=== PATIENT | male | born 1980 | race Caucasian/White ===

== ENCOUNTER 2024-05-23 11:29 | Emergency (ER) | payer BC ==
[2024-05-23 13:08] VITALS: RESP 18
[2024-05-23 13:15] LABS: Basophils # (A) 0.1 k/uL (0-0.2); Basophils % (A) 1 %; Eosinophils # (A) 0.4 k/uL (0-0.7); Eosinophils % (A) 6 %; HCT 45.1 % (39.0-53.0); HGB 15.4 gm/dL (13.0-17.5); Lymphocytes # (A) 1.9 k/uL (1.0-4.8); Lymphocytes % (A) 28 %; MCH 32.1 pg (25.0-35.0); MCHC 34.1 g/dL (31.0-37.0); MCV 94.1 fL (80.0-100.0); Mean Platelet Volume 7.5; Monocytes # (A) 0.3 k/uL (0-1.0); Monocytes % (A) 5 %; Neutrophils # (A) 3.9 k/uL (1.3-7.7); Neutrophils % (A) 57 %; Platelet Count 207 k/uL (150-450); RDW 12.6 % (11.5-15.5); WBC 6.9 k/uL (3.8-10.6)
[2024-05-23 13:26] LABS: ALT 18 U/L (4-49); African American GFR (CKD) >90 (>60 ml/min/1.73 sqM); Albumin 4.5 g/dL (3.5-5.0); Anion Gap 9 mmol/L; Blood Urea Nitrogen 10 mg/dL (9-20); Calcium 9.8 mg/dL (8.4-10.2); Carbon Dioxide 24 mmol/L (22-30); Chloride 106 mmol/L (98-107); Glucose 91 mg/dL (74-99); Non-African American GFR(CKD) >90 (>60 ml/min/1.73 sqM); Sodium 139 mmol/L (137-145); Total Protein 7.1 g/dL (6.3-8.2)
--- NOTE | 2024-05-23 13:33 | ED ---
SOB HPI - General Chief Complaint: Shortness of Breath Stated Complaint: VIVIANA Time Seen by Provider: 05/23/24 12:24 Source: patient, RN notes reviewed Mode of arrival: ambulatory Limitations: no limitations - History of Present Illness Initial Comments: This is a 44-year-old male who presents to the emergency department for coughing and wheezing. States that over the last several months he noticed that at night he seemed to be wheezing and had some difficulty breathing. This then started to become more prominent and he started to notice it during the day. He had been to different urgent cares several times and was on courses of steroids and antibiotics. States that symptoms seem to get better and then return shortly afterwards. He then followed up with an ENT who did a culture of his throat. They initially thought it was a yeast infection and he was started on fluconazole. However, the culture came back positive for bacteria and he was on another course of antibiotics. Symptoms again improved temporarily before returning. He is concerned about a blood clot in his lungs or something else contributing to his symptoms. Denies any history of asthma. MD Complaint: shortness of breath, cough - Related Data Previous Rx's Medication Instructions Recorded Budesonide/Formoterol Fumarate 2 puff INHALATION BID #10.2 gm 05/23/24 [Symbicort 80-4.5 Mcg Inhaler] predniSONE 50 mg PO DAILY 5 Days #5 tab 05/23/24 Allergies Allergy/AdvReac Type Severity Reaction Status Date / Time No Known Allergies Allergy Verified 05/23/24 12:23 Review of Systems ROS Statement: Those systems with pertinent positive or pertinent negative responses have been documented in the HPI. ROS Other: All systems not noted in ROS Statement are negative. Past Medical History Past Medical History: No Reported History History of Any Multi-Drug Resistant Organisms: None Reported Past Surgical History: Cholecystectomy Past Psychological History: No Psychological Hx Reported Smoking Status: Never smoker Past Alcohol Use History: Occasional Past Drug Use History: Marijuana General Exam Limitations: no limitations General appearance: alert, in no apparent distress Head exam: Present: atraumatic, normocephalic, normal inspection Respiratory exam: Present: normal lung sounds bilaterally. Absent: respiratory distress, wheezes, rales, rhonchi, stridor Cardiovascular Exam: Present: regular rate, normal rhythm, normal heart sounds. Absent: systolic murmur, diastolic murmur, rubs, gallop, clicks Neurological exam: Present: alert, oriented X3, CN II-XII intact Psychiatric exam: Present: normal affect, normal mood Skin exam: Present: warm, dry, intact, normal color. Absent: rash Course Vital Signs 05/23/24 05/23/24 05/23/24 12:18 13:07 14:23 Temperature 98.2 F 98.1 F Pulse Rate 73 59 L Respiratory 15 18 18 Rate Blood Pressure 158/101 166/112 O2 Sat by Pulse 98 99 Oximetry 05/23/24 05/23/24 14:55 15:29 Temperature 98.1 F Pulse Rate 86 68 Respiratory 18 18 Rate Blood Pressure 159/94 O2 Sat by Pulse 97 97 Oximetry Medical Decision Making - Medical Decision Making This is a 44 year old male who presents to the emergency department for shortness of breath. Was pt. sent in by a medical professional or institution? @ -No Did you speak to anyone other than the patient for history? @ -No Did you review nursing and triage notes? @ -Yes, and I agree, it is accurate with regards to the patient's symptoms. Were old charts reviewed? @ -No Differential Diagnosis? @ -Differential Dyspnea: Coronary syndrome, arrhythmia, tamponade, asthma, COPD, pulmonary embolism, pneumonia, pneumothorax, pulmonary effusion, anaphylaxis, diabetic ketoacidosis, flailed chest, pulmonary contusion, diaphragmatic rupture, anemia, neuromuscular, this is not meant to be an all-inclusive list. EKG interpreted by me (3pts min.)? @ -EKG interpreted by me demonstrating the following: Sinus bradycardia. Ventricular rate 54 bpm, W[place] interval 147 ms, QRS duration 99 ms, QTc 378 ms. X-rays interpreted by me (1pt min.)? @ -Chest x-ray obtained, my interpretation identifies no localized consolidations or infiltrates. CT interpreted by me (1pt min.)? @ -CTA of the chest obtained. My interpretation identifies no evidence of a pulmonary embolus. U/S interpreted by me (1pt. min.)? @ -Not obtained What testing was considered but not performed? (CT, X-rays, U/S, labs)? Why? @ -None What meds were considered but not given? Why? @ -None Did you discuss the management of the patient with other professionals? @ -No Did you reconcile home meds? @ -No Was smoking cessation discussed for >3mins.? @ -No Was critical care preformed (if so, how long)? @ -No Were there social determinants of health that impacted care today? How? (Homelessness, low income, unemployed, alcoholism, drug addiction, transportation, low edu. Level, literacy, decrease access to med. care, intermediate, rehab)? @ -No Was there de-escalation of care discussed even if they declined? (Discuss DNR or withdrawal of care, Hospice)? @ -No What co-morbidities impacted this encounter? (DM, HTN, Smoking, COPD, CAD, Cancer, CVA, Hep., AIDS, mental health diagnosis, sleep apnea, morbid obesity)? @ -None Was patient admitted / discharged? @ -Discharged. Lab work demonstrates a borderline elevated D-dimer of 0.54. Chest x-ray reveals no acute process. CTA of the chest was subsequently obtained revealing no evidence of a pulmonary embolus or any other irregularities. The cause of his symptoms is not entirely clear. He may be developing asthma or COPD, especially given that symptoms were initially prominent at night and he feels like he is wheezing. He also gets improvement when using the albuterol inhaler as needed. Advised that we can start him on Symbicort, a maintenance asthma and COPD medication to see if that gives him any relief. He was also started on another 5-day course of prednisone. Information for follow-up with pulmonology provided. Patient discharged home in stable condition. Case discussed with ED attending Dr. Tong. Return precautions reviewed in depth, the patient is instructed to return to the emergency department with any new, worsening, or concerning symptoms. Patient verbalized understanding. Undiagnosed new problem with uncertain prognosis? @ -None Drug Therapy requiring intensive monitoring for toxicity (Heparin, Nitro, Insulin, Cardizem)? @ -None Were any procedures done? @ -None Diagnosis/symptom? @ -VIVIANA, wheezing Acute, or Chronic, or Acute on Chronic? @ -Chronic Uncomplicated (without systemic symptoms) or Complicated (systemic symptoms)? @ -Uncomplicated Side effects of treatment? @ -None Exacerbation, Progression, or Severe Exacerbation] @ -Progression Poses a threat to life or bodily function? @ -Unlikely - Lab Data Result diagrams: 05/23/24 13:03 05/23/24 13:03 Lab Results 09/28/24 09/28/24 09/28/24 Range/Units 13:03 13:03 13:03 WBC 6.9 (3.8-10.6) k/uL RBC 4.80 (4.30-5.90) m/uL Hgb 15.4 (13.0-17.5) gm/dL Hct 45.1 (39.0-53.0) % MCV 94.1 (80.0-100.0) fL MCH 32.1 (25.0-35.0) pg MCHC 34.1 (31.0-37.0) g/dL RDW 12.6 (11.5-15.5) % Plt Count 207 (150-450) k/uL MPV 7.5 Neutrophils % 57 % Lymphocytes % 28 % Monocytes % 5 % Eosinophils % 6 % Basophils % 1 % Neutrophils # 3.9 (1.3-7.7) k/uL Lymphocytes # 1.9 (1.0-4.8) k/uL Monocytes # 0.3 (0-1.0) k/uL Eosinophils # 0.4 (0-0.7) k/uL Basophils # 0.1 (0-0.2) k/uL PT 10.1 (10.0-12.5) sec INR 0.9 (<1.2) APTT 20.3 L (22.0-30.0) sec D-Dimer 0.54 (<0.60) mg/L FEU Sodium 139 (137-145) mmol/L Potassium 4.7 (3.5-5.1) mmol/L Chloride 106 (98-107) mmol/L Carbon Dioxide 24 (22-30) mmol/L Anion Gap 9 mmol/L BUN 10 (9-20) mg/dL Creatinine 0.76 (0.66-1.25) mg/dL Est GFR (CKD-EPI)AfAm >90 (>60 ml/min/1.73 sqM) Est GFR (CKD-EPI)NonAf >90 (>60 ml/min/1.73 sqM) Glucose 91 (74-99) mg/dL Plasma Lactic Acid Melvin (0.7-2.0) mmol/L Calcium 9.8 (8.4-10.2) mg/dL Magnesium 1.9 (1.6-2.3) mg/dL Total Bilirubin 1.0 (0.2-1.3) mg/dL AST 35 (17-59) U/L ALT 18 (4-49) U/L Alkaline Phosphatase 45 (38-126) U/L Troponin I (0.000-0.034) ng/mL NT-Pro-B Natriuret Pep 28 pg/mL Total Protein 7.1 (6.3-8.2) g/dL Albumin 4.5 (3.5-5.0) g/dL 05/23/24 05/23/24 Range/Units 13:03 13:03 WBC (3.8-10.6) k/uL RBC (4.30-5.90) m/uL Hgb (13.0-17.5) gm/dL Hct (39.0-53.0) % MCV (80.0-100.0) fL MCH (25.0-35.0) pg MCHC (31.0-37.0) g/dL RDW (11.5-15.5) % Plt Count (150-450) k/uL MPV Neutrophils % % Lymphocytes % % Monocytes % % Eosinophils % % Basophils % % Neutrophils # (1.3-7.7) k/uL Lymphocytes # (1.0-4.8) k/uL Monocytes # (0-1.0) k/uL Eosinophils # (0-0.7) k/uL Basophils # (0-0.2) k/uL PT (10.0-12.5) sec INR (<1.2) APTT (22.0-30.0) sec D-Dimer (<0.60) mg/L FEU Sodium (137-145) mmol/L Potassium (3.5-5.1) mmol/L Chloride (98-107) mmol/L Carbon Dioxide (22-30) mmol/L Anion Gap mmol/L BUN (9-20) mg/dL Creatinine (0.66-1.25) mg/dL Est GFR (CKD-EPI)AfAm (>60 ml/min/1.73 sqM) Est GFR (CKD-EPI)NonAf (>60 ml/min/1.73 sqM) Glucose (74-99) mg/dL Plasma Lactic Acid Melvin 1.2 (0.7-2.0) mmol/L Calcium (8.4-10.2) mg/dL Magnesium (1.6-2.3) mg/dL Total Bilirubin (0.2-1.3) mg/dL AST (17-59) U/L ALT (4-49) U/L Alkaline Phosphatase (38-126) U/L Troponin I <0.012 (0.000-0.034) ng/mL NT-Pro-B Natriuret Pep pg/mL Total Protein (6.3-8.2) g/dL Albumin (3.5-5.0) g/dL - Radiology Data Radiology results: report reviewed, image reviewed Disposition Clinical Impression: Wheezing, Chest congestion, Difficulty breathing Disposition: HOME SELF-CARE Instructions (If sedation given, give patient instructions): Wheezing (ED), Shortness of Breath (ED) Additional Instructions: Return to the emergency department with any new, worsening, or concerning symptoms. Take the prednisone daily for 5 days. Start using the inhaler prescribed as 2 puffs twice daily. Continue to use the albuterol inhaler as needed for episodes of wheezing and shortness of breath. Contact the stock wetter listed below for a follow-up appointment and further evaluation of ongoing symptoms. Follow up with your primary care provider in 1-2 days. Prescriptions: predniSONE 50 mg PO DAILY 5 Days #5 tab Budesonide/Formoterol Fumarate [Symbicort 80-4.5 Mcg Inhaler] 2 puff INHALATION BID #10.2 gm Is patient prescribed a controlled substance at d/c from ED?: No Referrals: Harlan Brandt DO [Primary Care Provider] - 1-2 days Amberly Bradshaw MD [STAFF PHYSICIAN] - 1-2 days Time of Disposition: 15:12
[2024-05-23 13:34] LABS: INR 0.9 (<1.2); NT-Pro-B-Type Natriuretic Pept 28 pg/mL; Prothrombin Time 10.1 sec (10.0-12.5)
--- NOTE | 2024-05-23 13:43 | XR ---
EXAMINATION TYPE: XR chest 2V DATE OF EXAM: 05/23/2024 COMPARISON: None HISTORY: Difficulty breathing TECHNIQUE: Frontal and lateral views of the chest are obtained. FINDINGS: There is no focal air space opacity, pleural effusion, or pneumothorax seen. The cardiac silhouette size is within normal limits. The osseous structures are intact. IMPRESSION: No acute cardiopulmonary process. [facility], Workstation: [email or web address], 05/23/2024 1:41 PM
[2024-05-23 13:50] LABS: AST 35 U/L (17-59); Alkaline Phosphatase 45 U/L (38-126); Magnesium 1.9 mg/dL (1.6-2.3); Partial Thromboplastin Time 20.3 sec (22.0-30.0); Potassium 4.7 mmol/L (3.5-5.1)
[2024-05-23 14:24] VITALS: TEMP 98.1
--- NOTE | 2024-05-23 14:26 | CT ---
EXAMINATION TYPE: CT chest angio for PE CT DLP: 615.3 mGycm, Automated exposure control for dose reduction was used. DATE OF EXAM: 05/23/2024 2:21 PM COMPARISON: Chest radiograph from same day. CLINICAL INDICATION: Male, 44 years old with history of VIVIANA, elevated d-dimer; VIVIANA x 10 months, posit [place] dimer TECHNIQUE/CONTRAST: CTA scan of the thorax is performed with IV Contrast, patient injected with 80 mL of Isovue 370, MIP images are created and reviewed these are created on a separate workstation.. FINDINGS: Pulmonary Artery: There is no evidence for a filling defect within the pulmonary vasculature to sugge st acute pulmonary embolism. The pulmonary artery is of normal size. Lungs/Pleura: No evidence of focal consolidation, pleural effusion or pneumothorax. Airway: Large airways are patent. Heart: Heart is within normal limits for size. Vasculature: No evidence of aortic aneurysm. Mediastinum: No gross evidence of adenopathy. Musculoskeletal: No acute osseous abnormalities Soft Tissues/lymph nodes: Unremarkable. Lower neck: No significant findings. Upper Abdomen: Cholecystectomy clips are present. Right adrenal nodule measuring 22 mm and 25 Hounsfi eld units compatible with lipid rich adrenal adenoma. IMPRESSION: 1. No evidence of pulmonary embolism. 2. No acute process. 3. Right Adrenal benign lipid rich adenoma. [facility], , 05/23/2024 2:23 PM
[2024-05-23] MEDS: DEXAMETHASONE SOD PHOSPHATE 10 MG/ML 1 ML VIAL IVP STA (15:23)
[2024-05-23 15:30] VITALS: BP 159/94; PULSE 68
== END 2024-05-23 15:30 | disposition home or self-care (01) ==
LOC: EC 11:29
DX: R06.00 Dyspnea, unspecified
CPT/HCPCS: 36415; 71046; 71275; 80053; 83605; 83735; 83880; 84484; 85025; 85379; 85610; 85730; 93005; 96374; 99285

== ENCOUNTER → 2024-07-14 | Outpatient (CLI) | payer BC ==
[2024-07-14 11:59] LABS: HCT 45.6 % (39.0-53.0); MCHC 35.1 g/dL (31.0-37.0); MCV 94.2 fL (80.0-100.0); Mean Platelet Volume 8.6; Platelet Count 159 k/uL (150-450); RBC 4.85 m/uL (4.30-5.90); WBC 9.1 k/uL (3.8-10.6)
[2024-07-14 12:20] LABS: Total Eosinophil Count 706 #EOS/uL (150-300)
[2024-07-14 18:50] LABS: Alternaria alternata IgE 0.12 kU/L; Aspergillus fumagatus IgE <0.10 kU/L; Birch IgE 0.25 kU/L; Cat Epith & Dander IgE <0.10 kU/L; Cladosporian herbarum IgE <0.10 kU/L; Cockroach IgE <0.10 kU/L; Dermato. farinae IgE <0.10 kU/L; Dog Dander IgE <0.10 kU/L; Elm IgE 0.26 kU/L; Maple (Box Elder) IgE 0.86 kU/L; Oak IgE 0.47 kU/L; Ragweed,Common IgE 0.33 kU/L; Red Top (Bentgrass) IgE 0.58 kU/L
== END | disposition home or self-care (01) ==
LOC: LABWHC1 10:02
PROVIDERS: ATTEND Internal Medicine
DX: J45.991 Cough variant asthma (principal)
CPT/HCPCS: 36415; 82785; 85008; 85027; 86003